=== PATIENT | female | born 1985 | race Caucasian/White ===

== ENCOUNTER 2017-03-27 12:39 | Emergency (ER) | payer OTHER ==
[~2017-03-27] VITALS: Ht 165.1 cm; Wt 64.9 kg
[2017-03-27 12:43] VITALS: BP 131/87
[2017-03-27] MEDS ORDERED: OXYcodone/APAP 5/325MG TABLET ONE (13:50)
[2017-03-27] MEDS ORDERED: OXYcodone/APAP 5/325MG TABLET PO ONE (14:00)
== END 2017-03-27 16:15 ==
LOC: ED 14:19
DX: S30.0XXA Contusion of lower back and pelvis, initial encounter (principal); V80.010A Animal-rider injured by fall from or being thrown from horse in noncollision accident, initial encounter; Y93.52 Activity, horseback riding; Y92.098 Other place in other non-institutional residence as the place of occurrence of the external cause; Y99.8 Other external cause status
CPT/HCPCS: 36415; 72220; 84703; 99285